=== PATIENT | female | born 1990 | race American Indian/Alaskan Native ===

== ENCOUNTER 2020-06-08 15:41 | Emergency (ER) | payer SELFPAY ==
[2020-06-08 16:27] VITALS: BP 137/83
--- NOTE | 2020-06-08 17:20 | Emergency Department Report ---
- General Chief Complaint: Sore Throat Stated Complaint: COUGH SORE THROAT Source: patient Mode of arrival: Ambulatory Limitations: No Limitations - History of Present Illness MD Complaint: cough, sore throat, nasal congestion -: Gradual, days(s) (1) Severity: mild, moderate Quality: dull Consistency: constant Improves With: nothing Worsens With: nothing Associated Symptoms: chills, rhinorrhea, nasal congestion, sore throat, cough. denies: weight loss Treatments Prior to Arrival: none - Related Data Previous Rx's Medication Instructions Recorded Last Taken Type Benzonatate [Tessalon Perles] 100 mg PO Q8HR #20 capsule 06/08/20 Unknown Rx Ketorolac [Toradol] 10 mg PO Q6H PRN #10 tablet 06/08/20 Unknown Rx ED Review of Systems ROS: Stated complaint: COUGH SORE THROAT Other details as noted in HPI Comment: All other systems reviewed and negative ED Past Medical Hx - Past Medical History Previous Medical History?: No - Surgical History Past Surgical History?: No - Medications Home Medications: Home Medications Medication Instructions Recorded Confirmed Last Taken Type Benzonatate [Tessalon Perles] 100 mg PO Q8HR #20 capsule 06/08/20 Unknown Rx Ketorolac [Toradol] 10 mg PO Q6H PRN #10 tablet 06/08/20 Unknown Rx ED Physical Exam - General Limitations: No Limitations General appearance: alert, in no apparent distress - Head Head exam: Present: atraumatic, normocephalic - Eye Eye exam: Present: normal appearance, PERRL, EOMI - ENT ENT exam: Present: mucous membranes moist, other (Nasal congestion is noted. Pharynx is erythematous with no exudate. No significant edema. Tongue and uvula are midline airways patent.) - Neck Neck exam: Present: normal inspection, full ROM - Respiratory Respiratory exam: Present: normal lung sounds bilaterally. Absent: respiratory distress - Cardiovascular Cardiovascular Exam: Present: regular rate, normal rhythm. Absent: systolic murmur, diastolic murmur, rubs, gallop - GI/Abdominal GI/Abdominal exam: Present: soft, normal bowel sounds - Extremities Exam Extremities exam: Present: normal inspection - Back Exam Back exam: Present: normal inspection - Neurological Exam Neurological exam: Present: alert, oriented X3 - Psychiatric Psychiatric exam: Present: normal affect, normal mood - Skin Skin exam: Present: warm, dry, intact, normal color. Absent: rash ED Course Vital Signs 06/08/20 16:24 Temperature 99.5 F Pulse Rate 97 H Respiratory 20 Rate Blood Pressure 137/83 [Right] O2 Sat by Pulse 99 Oximetry ED Medical Decision Making - Radiology Data Radiology results: report reviewed [address] [place] [id number] XRay Report Signed Patient: ANAYA TO MR#: [id number] 0 : 1990 Acct:[id number] Age/Sex: 30 / F ADM Date: 06/08/20 Loc: ED Attending Dr: Ordering Physician: JOSELUIS NORTON Date of Service: 06/08/20 Procedure(s): XR chest routine 2V Accession Number(s): [id number] cc: JOSELUIS NORTON Fluoro Time In Minutes: CHEST 2 VIEWS INDICATION: cough sob. COMPARISON: FINDINGS: Support devices: None. Heart: Within normal limits. Lungs: No acute air space or interstitial disease. Pleura: No significant pleural effusion. No pneumothorax. Additional findings: None. IMPRESSION: 1. No acute findings. Signer Name: Julio Wolff MD Signed: 06/08/2020 5:44 PM Workstation Name: [id number] Transcribed By: WG Dictated By: Juilo Wolff MD Electronically Authenticated By: Julio Wolff MD Signed Date/Time: 06/08/201743 DD/ 43 TD/TT: - Medical Decision Making This 30-year-old patient presents with symptoms suspicious for likely viral upper respiratory tract infection. Differential includes bacterial pneumonia, sinusitis, allergic rhinitis, coronavirus. Do not suspect underlying Cardiopulmonary process. I considered but think unlikely dangerous cause of this patient symptoms to include acute coronary syndrome, CHF or COPD exacerbations, pneumonia, pneumothorax. Patient is nontoxic appearing and not in need of emergent medical intervention. This patient presents with lower respiratory symptoms concerning for viral syndrome including flu. Patient does not meet criteria for COVID-19. Doubt pneumonia, sepsis or other serious bacterial infection or acute emergent condition. Is otherwise well- appearing with acceptable vitals and reassuring physical examination and is safe to be discharged home. Patient lacks serious medical comorbidities that would require admission. Patient is nontoxic and although symptomatic otherwise safe to go home. Will provide strict return precautions and instructions on self isolation/quarantine and anticipatory guidance. Plan: Reassurance, reassessment, [id number] medications, discharge with PCP follow-up Critical care attestation.: If time is entered above; I have spent that time in minutes in the direct care of this critically ill patient, excluding procedure time. ED Disposition Clinical Impression: Upper respiratory tract infection Disposition: - TO HOME OR SELFCARE Is pt being admited?: No Does the pt Need Aspirin: No Condition: Stable Instructions: Viral Respiratory Infection, [id number], Cool Mist Vaporizer, Upper Respiratory Infection, Adult, Cough, Adult, [id number] Prescriptions: Benzonatate [Tessalon Perles] 100 mg PO Q8HR #20 capsule Ketorolac [Toradol] 10 mg PO Q6H PRN #10 tablet PRN Reason: Pain Referrals: [facility] [Provider Group] - 3-5 Days
--- NOTE | 2020-06-08 17:49 | XRay Report ---
CHEST 2 VIEWS INDICATION: cough sob. COMPARISON: FINDINGS: Support devices: None. Heart: Within normal limits. Lungs: No acute air space or interstitial disease. Pleura: No significant pleural effusion. No pneumothorax. Additional findings: None. IMPRESSION: 1. No acute findings. Signer Name: Julio Wolff MD Signed: 06/08/2020 5:44 PM Workstation Name: [id number]
== END 2020-06-08 23:00 | disposition home or self-care (01) ==
LOC: ED 15:41
DX: J06.9 Acute upper respiratory infection, unspecified (principal); Z79.899 Other long term (current) drug therapy
CPT/HCPCS: 71046; 99283